=== PATIENT | female | born 1995 | race Caucasian/White ===

== ENCOUNTER 2018-07-23 09:38 | Day surgery (SDC) | payer OTHER ==
[2018-07-17 12:05] VITALS: BMI 24.9
--- NOTE | 2018-07-23 06:56 | HP ---
History & Physical Update - History History: No Change - Physical Physical: No Change - Assessment Assessment: No Change - Plan Plan: No Change (Initial H&P completed on 07/16/18 and located in her paper chart. No new complaints or medications. Planned procedure is L5/S1 laminectomy)
[~2018-07-23 09:38] MED LIST: oxyCODONE HCL 10 MG SUSTAINED ACTING TABLET PO STA
[2018-07-23] MEDS ORDERED: oxyCODONE HCL 10 MG SUSTAINED ACTING TABLET ONE (10:35)
[2018-07-23] MEDS ORDERED: THROMBIN (RECOMBINANT) 5,000 UNIT VIAL TP ONE (11:08)
[2018-07-23] MEDS ORDERED: LIDOCAINE 1%/EPI 1:100000 (20 ML MULTI DOSE VIAL) ONE (11:08)
[2018-07-23] MEDS ORDERED: methylPREDNISolone ACET (DEPO) 40 MG/1 ML VIAL ONE (11:08)
[2018-07-23] MEDS ORDERED: PROPOFOL 20 ML ONE (11:11)
[2018-07-23] MEDS ORDERED: DEXAMETHASONE SOD PHOSPHATE/PF 10 MG/ML SDV ONE (11:11)
[2018-07-23] MEDS ORDERED: MIDAZOLAM HCL 2 MG/2 ML SINGLE DOSE VIAL ONE (11:11)
[2018-07-23] MEDS ORDERED: BUPIVACAINE HCL/PF (5 MG/ML) 30 ML VIAL IJ ONE (11:11)
[2018-07-23] MEDS ORDERED: ceFAZolin SODIUM 1 GM VIAL ONE (11:54)
[2018-07-23] MEDS ORDERED: ONDANSETRON 4 MG/2 ML VIAL ONE (12:16)
[2018-07-23] MEDS ORDERED: DEXAMETHASONE SOD PHOSPHATE 4 MG/1 ML VIAL ONE (12:16)
[2018-07-23] MEDS ORDERED: THROMBIN (BOVINE) 5,000 UNIT VIAL TP ONE (12:28)
[2018-07-23] MEDS ORDERED: ONDANSETRON 4 MG/2 ML VIAL IVPUSH PRN (12:53)
[2018-07-23] MEDS ORDERED: oxyCODONE HCL 5 MG TABLET PO PRN (12:53)
[2018-07-23] MEDS ORDERED: LACTATED RINGERS SOLUTION 1,000 ML IV SCH (13:00)
--- NOTE | 2018-07-23 13:03 | OP ---
Operative Note - Note: Operative Date: 07/23/18 Pre-Operative Diagnosis: L5/S1 stenosis, disc herniation, radiculopathy Operation: L5/S1 laminectomy, left discectomy Post-Operative Diagnosis: Same as Pre-op Surgeon: Xiang Sotelo Crook Operator: Fabian Velez Anesthesia: Spinal Specimens Removed: L5/S1 disc Estimated Blood Loss (mls): 10 Fluid Volume Replaced (mls): 700 Operative Report Dictated: Yes
--- NOTE | 2018-07-23 13:04 | SURG ---
Surgery Foundation Engineer Note Foundation Engineer: Fabian Velez PA-C Date of Service: 07/23/18 Diagnosis: L5/S1 stenosis, disc herniation, radiculopathy Procedure: L5/S1 laminectomy, left discectomy I was present for the entirety of the operative procedure. For further detail, please refer to operative report. Visit type - Case Type Case Type: Scheduled - New patient This patient is new to me today: Yes Date on this admission: 07/23/18
[2018-07-23 14:52] VITALS: TEMP 98.6
[2018-07-23 16:31] VITALS: BP 122/76; PULSE 103
--- NOTE | 2018-07-24 09:21 | OP ---
DATE OF OPERATION: 07/23/2018 PREOPERATIVE DIAGNOSIS: Spinal stenosis, L5-S1. POSTOPERATIVE DIAGNOSIS: Spinal stenosis, L5-S1. PROCEDURE PERFORMED: Laminectomy, L5-S1. SURGEON: Xiang Sotelo MD RADIO INTERFERENCE INVESTIGATOR: KENTRELL Ashraf ESTIMATED BLOOD LOSS: 50 mL. INTRAVENOUS FLUIDS: Per Anesthesia. ANESTHESIA: Spinal/TLIP. COMPLICATIONS: There were none. DISPOSITION: Patient brought to the PACU in stable condition. INDICATION FOR SURGERY: Patient is a 22-year-old female who has been suffering from pain from her back down her leg. X-rays and MRI were completed which showed that she had spinal stenosis at L5-S1. She had gone through an exhaustive course of treatment for this which included medications, physical therapy, as well as injections. Unfortunately, her pain continued to persist despite all this. At this point, risks, benefits, and alternatives are discussed, and the patient consented to surgery. DESCRIPTION OF PROCEDURE: Patient was brought to the operating room by the Anesthesia staff after appropriate patient identification was performed. Spinal anesthesia was given. TLIP block was given. Patient was able to position herself prone onto the Tra frame with all areas of bony prominences well padded at this time. Two needles were placed into the back to pia off the L5-S1 level. X-ray was taken to confirm this was correct. Needle was removed, and 10 mL of lidocaine with epinephrine was injected into her back. At the time, her back was prepped and draped in a sterile manner. At this point, a timeout was completed. An incision was made from the top of L5 down to the bottom of S1. Dissection was carried down to the fascia. The fascia was then split open at this time and appropriate retractors were placed in. A spinal needle was placed onto the L5 lamina to pia off the L5-S1 level. X-ray was taken to confirm this was correct. Needle was removed. The interspinous ligament of L5-S1 was removed. Portion of the L5-S1 spinous processes were removed. The microscope was brought in. Portions of the L5-S1 lamina were removed. Portions of the flavum was removed. The thecal sac was mobilized medially, and a disk herniation was noted. A complete decompression was performed in such that by the end of the procedure the S1 nerve root appeared to be well decompressed. Portions of the inferior and superior facets were removed. Steroids were placed over the nerve root. FloSeal was placed over that. The fascia was closed with a number 1 Vicryl suture. Subcutaneous tissue was closed with 2-0 Vicryl sutures. Skin was closed with 3-0 Monocryl suture. Dermabond was applied. Steri-Strips were applied. Sterile dressing was applied. Patient was placed supine on the OR bed, extubated in the OR, and brought to the PACU in stable condition. Zen [id number]
--- NOTE | 2018-07-24 17:23 | PATH ---
Surgical Pathology Report Patient Name: PEYTON INFANTE [facility]. Rec. #: [id number] /Age/Gender: 1995 (Age: 22) / F Account: [id number] Location: [facility] Taken: 07/23/2018 Received: 07/23/2018 Reported: 07/24/2018 Physicians: Xiang Sotelo M.D. Specimen(s) Received L5-S1 DISC Clinical History Spinal stenosis Final Diagnosis DISC, L5-S1, LAMINECTOMY: BENIGN INTERVERTEBRAL DISC TISSUE, DENSE CONNECTIVE TISSUE, AND FIBROADIPOSE TISSUE. Electronically Signed Daysi Chi M.D. Gross Description Received in formalin labeled "disc L5-S1," is a 1.6 x 1.2 x 0.3 cm aggregate of bryson fragments of fibrocartilaginous tissue. The specimen is entirely submitted in one cassette. /07/23/201807/23/2018
== END 2018-07-23 16:25 | disposition home or self-care (01) ==
LOC: FASU 09:38
PROVIDERS: ATTEND Orthopaedic Surgery Orthopaedic Surgery of the Spine
PROC: 01NB0ZZ Release Lumbar Nerve, Open Approach (ICD-10-PCS; principal; 2018-07-23 12:07)
DX: M48.07 Spinal stenosis, lumbosacral region (principal)
CPT/HCPCS: 72100-TC-FY; 76000-TC-FY; 84703; 88304-TC; 94760